=== PATIENT | female | born 1995 ===

== ENCOUNTER 2023-07-25 19:56 | Emergency (ER) | payer MEDICAID, OTHER ==
[2023-07-25] MEDS: Sodium Chloride 0.9% 10 ML Syringe FLUSH PRN ×2 (21:28→22:56)
[2023-07-25 21:31] LABS: EOSINOPHILS PERCENT AUTO 2.1 % (1.0-3.0); HEMATOCRIT 38.3 % (37.0-47.0); HEMOGLOBIN 13.1 g/dL (12.0-16.0); LYMPHOCYTES PERCENT AUTO 34.5 % (20.5-50.1); MEAN CORPUSCULAR HGB CONC 34.2 g/dL (33.0-35.0); MEAN CORPUSCULAR VOLUME 96.5 fL (80-100); NEUTROPHILS PERCENT AUTO 57.4 % (42.2-75.2); PLATELET COUNT,PLT 356 10^3/uL (150-450); RED BLOOD CELL COUNT 3.97 10^6/uL (4.2-5.4); WHITE BLOOD CELL COUNT,WBC 8.9 10^3/uL (5.0-10.0)
[2023-07-25 22:02] LABS: PROTHROMBIN TIME 10.4 SEC (9.0-12.0); PTT,PARTIAL THROMBOPLSTIN TIME 28.5 SEC (22.0-34.0)
[2023-07-25 22:05] LABS: A/G RATIO 0.8; ALANINE AMINOTRANSFERASE,ALT 91 U/L (14-59); ALKALINE PHOSPHATASE 151 U/L (46-116); AMYLASE 34 U/L (25-115); ANION GAP 12.9 mEq/L (7-13); BILIRUBIN TOTAL 0.4 mg/dL (0.2-1.0); BLOOD UREA NITROGEN,BUN 13 mg/dL (7-18); BUN/CREATININE RATIO 13.5 (No establ ref range); CARBON DIOXIDE,CO2 26 mmol/L (21-32); CHLORIDE,CL 102 mmol/L (98-107); CREATININE 0.96 mg/dL (0.55-1.02); EST CRCL DRUG DOSING (CG) 78.51 mL/min; ETHANOL BLOOD MEDICAL 170 mg/dL (0); GLUCOSE RANDOM 108 mg/dL (70-99); LIPASE 35 U/L (16-77); MAGNESIUM 2.3 mg/dL (1.8-2.4); POTASSIUM,K 3.9 mmol/L (3.5-5.1); PROTEIN TOTAL,TP 8.9 g/dL (6.4-8.2); SODIUM,NA 137 mmol/L (136-145)
[2023-07-25 22:09] LABS: LACTIC ACID 0.3 mmol/L (0.4-2.0)
[2023-07-25 22:09] LABS: APPEARANCE,URINE CLEAR (CLEAR); BILIRUBIN,URINE NEGATIVE (NEGATIVE); COLOR,URINE YELLOW (YELLOW); GLUCOSE,URINE NEGATIVE (NEGATIVE); KETONES,URINE NEGATIVE (NEGATIVE); LEUKOCYTE ESTERASE,URINE NEGATIVE (NEGATIVE); NITRITE,URINE POSITIVE (NEGATIVE); OCCULT BLOOD,URINE TRACE-INTACT (NEGATIVE); PH,URINE 7.5 (5.0-9.0); PROTEIN,URINE 30 (NEGATIVE)
[2023-07-25 22:13] LABS: AMPHETAMINES,URINE NEGATIVE (NEGATIVE); BARBITURATES,URINE NEGATIVE (NEGATIVE); BENZODIAZEPINE,URINE NEGATIVE (NEGATIVE); MDMA (ECSTASY), URINE NEGATIVE (NEGATIVE); METHADONE,URINE NEGATIVE (NEGATIVE); METHAMPHETAMINES,URINE NEGATIVE (NEGATIVE); OPIATES,URINE NEGATIVE (NEGATIVE); OXYCODONE,URINE NEGATIVE (NEGATIVE); PHENCYCLIDINE,URINE NEGATIVE (NEGATIVE); TCA,URINE NEGATIVE (NEGATIVE)
[2023-07-25 22:49] LABS: C-REACTIVE PROTEIN < 0.05 ng/dL (<=0.30); ESTIMATED GFR 83 mL/min (>=60)
[2023-07-25] MEDS ORDERED: cefTRIAXone 1 GM Vial IVPUSH ONE (22:51)
[2023-07-25 22:57] LABS: BACTERIA,URINE MODERATE /HPF (0-FEW/HPF); EPITHELIAL CELLS,URINE FEW /HPF (NOT SEEN); WBC,URINE 0-5 /HPF (0-5/HPF)
[2023-07-25 23:10] LABS: ASPARTATE AMNIOTRANSFERASE,AST 106 U/L (15-37)
== END 2023-07-25 23:08 | disposition home or self-care (01) ==
LOC: DL.ED 19:56
DX: N30.01 Acute cystitis with hematuria (principal); F10.920 Alcohol use, unspecified with intoxication, uncomplicated; R74.01 Elevation of levels of liver transaminase levels
CPT/HCPCS: 36415; 71045; 80053; 80305-QW; 80307; 81001; 81025; 82150; 83605; 83690; 83735; 84145; 84484; 85025; 85610; 85730; 86140; 87086; 93005; 93010; 96374; 99284; 99284-25; J0696; J3490

== ENCOUNTER 2025-04-14 21:53 | Emergency (ER) | payer MEDICAID ==
[2025-04-14 22:41] LABS: EOSINOPHILS PERCENT AUTO 0.1 % (1.0-3.0); LYMPHOCYTES PERCENT AUTO 6.8 % (20.5-50.1); MONOCYTES PERCENT AUTO 5.1 % (2-8); NEUTROPHILS PERCENT AUTO 87.6 % (42.2-75.2); PLATELET COUNT,PLT 288 10^3/uL (150-450); RED BLOOD CELL COUNT 4.89 10^6/uL (4.2-5.4); WHITE BLOOD CELL COUNT,WBC 13.6 10^3/uL (5.0-10.0)
[2025-04-14 22:42] LABS: BASOPHILS PERCENT AUTO 0.4 % (0.0-1.0)
[2025-04-14 22:52] LABS: KETONES,BLOOD SMALL-20 mg/dL
[2025-04-14 22:58] LABS: LACTIC ACID 1.6 mmol/L (0.4-2.0)
[2025-04-14 23:02] LABS: O2 DELIVERY DEVICE ROOM AIR
[2025-04-14 23:04] LABS: A/G RATIO 0.8; ALANINE AMINOTRANSFERASE,ALT 56 U/L (14-59); ASPARTATE AMNIOTRANSFERASE,AST 36 U/L (15-37); BILIRUBIN TOTAL 0.6 mg/dL (0.2-1.0); BLOOD UREA NITROGEN,BUN 9 mg/dL (7-18); CARBON DIOXIDE,CO2 7 mmol/L (21-32); CHLORIDE,CL 97 mmol/L (98-107); CREATININE 1.42 mg/dL (0.55-1.02); POTASSIUM,K 3.3 mmol/L (3.5-5.1); PROTEIN TOTAL,TP 9.4 g/dL (6.4-8.2)
[2025-04-14 23:08] LABS: SODIUM,NA 131 mmol/L (136-145)
[2025-04-14 23:10] LABS: BASE EXCESS VENOUS -28.1 mmol/l ((-2)-(+3)); BICARBONATE,VENOUS 5 mmol/l (19-25); O2 SATURATION VENOUS 52.0 % (60-80); PCO2 VENOUS 27 mmHg (41-51); PO2 VENOUS 33 mmHg (35-42)
[2025-04-14 23:12] LABS: PH,VENOUS 6.93 (7.31-7.41)
[2025-04-14 23:14] LABS: ESTIMATED GFR 51 mL/min (>=60); ETHANOL BLOOD MEDICAL < 3 mg/dL (0); GLUCOSE RANDOM 728 mg/dL (70-99)
[2025-04-14] MEDS: Ondansetron 4 MG/2 ML SDV ONE (23:16)
[2025-04-14] MEDS: Ondansetron 4 MG/2 ML SDV IVPUSH ONE (23:16)
[2025-04-14] MEDS ORDERED: 50% Dextrose in Water 50 ML Syringe IVPUSH PRN ×2 (23:18→23:31)
[2025-04-14 23:22] LABS: APPEARANCE,URINE CLEAR (CLEAR); GLUCOSE,URINE 500 (NEGATIVE); OCCULT BLOOD,URINE MODERATE (NEGATIVE)
[2025-04-14 23:27] LABS: BAND PERCENT MAN 8 %; SEG NEUTROPHILS PERCENT MAN 77 % (42-75)
[2025-04-14 23:27] LABS: AMPHETAMINES,URINE NEGATIVE (NEGATIVE); BARBITURATES,URINE NEGATIVE (NEGATIVE); MDMA (ECSTASY), URINE NEGATIVE (NEGATIVE); METHAMPHETAMINES,URINE NEGATIVE (NEGATIVE); OPIATES,URINE NEGATIVE (NEGATIVE); OXYCODONE,URINE NEGATIVE (NEGATIVE); PHENCYCLIDINE,URINE NEGATIVE (NEGATIVE); TCA,URINE NEGATIVE (NEGATIVE)
[2025-04-14] MEDS: Insulin Regular, Human 100 Units/ML 10 ML Vial IV ONE (23:27)
[2025-04-14 23:28] LABS: LYMPHOCYTES PERCENT MAN 8 % (20-50); MONOCYTES PERCENT MAN 7 % (2-8)
[2025-04-14] MEDS: Potassium Chloride 10 MEQ Tab.ER PO ONE (23:28)
[2025-04-14 23:32] LABS: EPITHELIAL CELLS,URINE FEW /HPF (NOT SEEN)
[2025-04-15] MEDS: Acetaminophen/HYDROcodone 325-5 MG Tab PO ONE (00:55)
== END 2025-04-15 01:00 ==
LOC: DL.ED 21:53
DX: E86.0 Dehydration (principal); E11.10 Type 2 diabetes mellitus with ketoacidosis without coma
CPT/HCPCS: 36415; 71045; 80053; 80305; 80307; 81001; 81025; 82009; 82803; 82947; 83605; 83690; 83735; 85025; 87070; 87205; 93005; 93010; 96361; 96374; 99285; 99291; A9270; J2405; J7030; 87077; 87186